=== PATIENT | male | born 1990 | race African-American/Black ===

== ENCOUNTER 2025-03-20 10:09 | Emergency (ER) | payer OTHER, SELFPAY ==
[2025-03-20] VITALS (15 sets, daily range): BP systolic 101–164; BP diastolic 76–108; PULSE 121–152; RESP 16–40; TEMP 36.7; O2SAT 95–100; BMI 35.2
--- NOTE | 2025-03-20 10:07 | ECG_ITS ---
APPROVED REPORT Exam: Resting ECG HR:154 bpm ECG Measurements Heart Rate 154 AXES KS 126 P 84 QRSd 90 QRS 91 QT 273 T 74 QTc 360 Conclusion Sinus tachycardia without acute ST or T wave changes concerning for ischemia Electronically signed by : Hannah Delatorre, 03/22/2025 00:55:10
--- NOTE | 2025-03-20 10:07 | XR_ITS ---
PROCEDURE INFORMATION: Exam: XR Chest Exam date and time: 03/20/2025 10:16 AM Age: 34 years old Clinical indication: Other: Hypoxia TECHNIQUE: Imaging protocol: Radiologic exam of the chest. Views: 1 view. Total images: 7 COMPARISON: No relevant prior studies available. FINDINGS: Lungs: Mild atelectatic changes both lung bases. No focal pneumonia. Pleural spaces: No pleural effusion. No pneumothorax. Heart/Mediastinum: No cardiomegaly. Bones/joints: Unremarkable. IMPRESSION: 1. Mild atelectatic changes both lung bases. 2. No focal pneumonia.
--- NOTE | 2025-03-20 10:14 | ED_ITS ---
Discharge Plan Disposition Patient Disposition: Left Against Medical Advice Condition: Fair Prescriptions Prescriptions: New prednisone 20 mg tablet 20 mg PO BID 5 Days Qty: 10 0RF azithromycin 500 mg tablet 500 mg PO DAILY 5 Days Qty: 5 0RF budesonide-formoterol [Symbicort] 160-4.5 mcg/actuation HFA aerosol inhaler 2 inh inhalation BID Qty: 10.2 0RF Referrals Follow up/Referrals: Provider,Referral, MD [Primary Care Provider, Medical] - See instructions Clinical Impressions Clinical Impression: Asthma with exacerbation Qualifiers: Asthma severity: severe Asthma persistence: unspecified Qualified Code(s): J 45.901 - Unspecified asthma with (acute) exacerbation Print Language Print Language: Malay Discharge ED Provider: Hannah Delatorre General Adult HPI General Chief complaint: Shortness of Breath/Dyspnea Stated complaint: Asthma Attack Time Seen by Provider: 03/20/25 10:14 History of Present Illness HPI narrative: Patient is a 34-year-old male with a past medical history of asthma who takes albuterol and Symbicort at home who presented to the emergency department with acute onset of shortness of breath. Patient states that he woke up acutely this morning and felt short of breath. Patient called EMS. When EMS arrived, patient was 84% on room air patient was placed on a nonrebreather given 2 DuoNebs and route. On arrival, patient was severely dyspneic, patient was only able to get out 1 word sentences. Patient had very poor air movement. Patient was able to state that he did not history of asthma has never had to be admitted or intubated but was seen a couple weeks ago for similar asthma attack and was given steroids and discharged home. Patient denies any fevers cough runny nose congestion or other associated symptoms. Patient denies any recent sick contacts. Patient denies any chest pain but does report shortness of breath. Patient denies any abdominal pain nausea vomiting or diarrhea. Related Data Previous Rx's ?Medication ?Instructions ?Recorded azithromycin 500 mg tablet 500 mg PO DAILY 5 days #5 t abs 03/20/25 budesonide-formoterol HFA 160 2 inh inhalation BID #10 .2 grams 03/20/25 mcg-4.5 mcg/actuation aerosol inhaler (Symbicort) prednisone 20 mg tablet 20 mg PO BID 5 days #10 tabs 03/20/25 Allergies Allergy/AdvReac Type Severity Reaction Status Date / Time No Known Drug Allergies Allergy Other Verified 03/20/25 10:30 [facility] Disclaimer: The information contained in this section may have been updated after the patient was seen, as this information can be updated by other users. Social History Smoking Status: Never smoker alcohol intake: never current occupational status: other Travel in the last 8 weeks?: None ROS Obtained: Yes All systems reviewed & no additional complaints except as documented and Yes Systems reviewed as appropriate & no additional complaints except as documented Physical Exam General General appearance: alert and in distress Comment: Appears to be acutely short of breath and in acute distress Head Head exam: atraumatic, normocephalic and normal inspection Eye Eye exam: Present normal appearance, PERRL and EOMI; Absent scleral icterus ENT ENT exam: Present normal exam and normal external ear exam Neck Neck exam: Present normal inspection and full ROM Chest Chest inspection: Present normal inspection and symmetric chest wall rise Respiratory Respiratory exam: Present normal lung sounds bilaterally, respiratory distress, wheezes (Almost silent chest very mild wheezing able to be heard, significantly tachypneic) and accessory muscle use Cardiovascular Cardiovascular exam: Present regular rate, tachycardia and normal heart sounds Abdominal Exam Abdominal exam: Present soft and distention; Absent tenderness, guarding or rebound Extremities Exam Extremities exam: Present normal inspection and full ROM Back Exam Back exam: Present normal inspection and full ROM Neurological Exam Neurological exam: Present alert and oriented X3 Psychiatric Psychiatric exam: Present normal affect and normal mood Skin Skin exam: Present warm and dry Medical Decision Making Medical Records Medical records reviewed: Yes I reviewed the patient's medical records. Screening: Per USPSTF and CDC recommendations, given the prevalence of disease in our region, it is our hospital?s policy to screen for HIV and viral Hepatitis for all patients aged 18 and over and those with ongoing risk factors. Reynold Inquiry Pt receiving controlled substance: No Vital Signs: 03/20/25 10:04 03/20/25 10:30 03/20/25 10:33 Temperature 98.1 F Temperature Source Oral Pulse Rate 152 H Pulse Rate [Apical] 151 H Respiratory Rate 40 H Blood Pressure 101/76 L Blood Pressure [Right Arm] 164/108 H Blood Pressure Mean [Right Arm] 126 Blood Pressure Source [Right Arm] Automatic Cuff Blood Pressure Position [Right Arm] Sitting 02 Sat by Pulse Oximetry 100 95 Oxygen Delivery Method Non-Rebreather BiPAP Oxygen Flow Rate (LPM) 30 Fraction of Inspired Oxygen 30 03/20/25 10:35 03/20/25 11:30 03/20/25 11:45 Temperature Temperature Source Pulse Rate 141 H 131 H 129 H Pulse Rate [Apical] Respiratory Rate Blood Pressure Blood Pressure [Right Arm] Blood Pressure Mean [Right Arm] Blood Pressure Source [Right Arm] Blood Pressure Position [Right Arm] 02 Sat by Pulse Oximetry 98 Oxygen Delivery Method BiPAP Oxygen Flow Rate (LPM) Fraction of Inspired Oxygen 03/20/25 12:00 03/20/25 12:15 03/20/25 13:07 Temperature Temperature Source Pulse Rate 131 H 130 H 132 H Pulse Rate [Apical] Respiratory Rate Blood Pressure 141/86 H Blood Pressure [Right Arm] Blood Pressure Mean [Right Arm] Blood Pressure Source [Right Arm] Blood Pressure Position [Right Arm] 02 Sat by Pulse Oximetry 98 97 98 Oxygen Delivery Method BiPAP Oxygen Flow Rate (LPM) 30 Fraction of Inspired Oxygen 03/20/25 13:10 03/20/25 13:30 03/20/25 14:00 Temperature Temperature Source Pulse Rate 121 H 126 H Pulse Rate [Apical] Respiratory Rate Blood Pressure 129/84 123/81 Blood Pressure [Right Arm] Blood Pressure Mean [Right Arm] Blood Pressure Source [Right Arm] Blood Pressure Position [Right Arm] 02 Sat by Pulse Oximetry 98 97 Oxygen Delivery Method BiPAP BiPAP Oxygen Flow Rate (LPM) 30 30 Fraction of Inspired Oxygen 30 03/20/25 14:15 03/20/25 14:31 Temperature Temperature Source Pulse Rate 125 H Pulse Rate [Apical] Respiratory Rate Blood Pressure 127/98 H Blood Pressure [Right Arm] Blood Pressure Mean [Right Arm] Blood Pressure Source [Right Arm] Blood Pressure Position [Right Arm] 02 Sat by Pulse Oximetry 100 99 Oxygen Delivery Method Non-Rebreather BiPAP Oxygen Flow Rate (LPM) 15 30 Fraction of Inspired Oxygen Lab Data Lab results reviewed: Yes I reviewed the patient's lab results. Lab Results 03/20/25 10:07: VBG pH 7.30 L, VBG pCO2 51.0, VBG pO2 155.5 H, VBG HCO3 24.5, VBG Total CO2 26.1, VBG Base Excess -1.9, VBG Lactic Acid 2.0 03/20/25 10:14: WBC 19.6 H, RBC 6.03, Hgb 17.4, Hct 52.7 H, MCV 87.4, MCH 28.9, MCHC 33.0, RDW 16.1, Plt Count 347, MPV 10.0, Neut % (Auto) 66.4, Lymph % (Auto) 18.4, Desha % (Auto) 9.4 H, Eos % (Auto) 4.7, Baso % (Auto) 0.5, Neut # (Auto) 13.0 H, Lymph # (Auto) 3.6, Desha # (Auto) 1.8 H, Eos # (Auto) 0.9 H, Baso # (Auto) 0.1, Total Counted 100, Neutrophils % (Manual) 66, Lymphocytes % (Manual) 21, Monocytes % (Manual) 10 H, Eosinophils % (Manual) 3, Platelet Estimate Normal, RBC Morphology Normal, D-Dimer 0.60 H, Sodium 142, Potassium 4.0, Chloride 104, Carbon Dioxide 26, Anion Gap 16.0 H, BUN 8 L, Creatinine 1.00, Estimated GFR 86, Est GFR ( Amer) 104, Glucose 205 H, Calcium 9.6, Magnesium 2.2, Total Bilirubin 0.7, AST 51, ALT 87 H, Alkaline Phosphatase 102, Troponin I < 0.01, Total Protein 7.8, Albumin 4.7, Globulin 3.1, Albumin/Globulin Ratio 1.5 03/20/25 10:27: Chlamy pneumoniae PCR Not detected, Adenovirus (PCR) Not detected, B. pertussis DNA (PCR) Not detected, Coronavirus OC43 (PCR) Not detected, Coronavirus HKU1 (PCR) Not detected, Coronavirus 229E (PCR) Not detected, SARS-CoV-2 (PCR) Not detected, Coronavirus NL63 (PCR) Not detected, Human Metapneumovir PCR Not detected, Influenza A (H1) PCR Not detected, Influ A (H1N1/09) PCR Not detected, Influenza A (H3) PCR Not detected, Influenza Type A (PCR) Not detected, Influenza Type B (PCR) Not detected, M. pneumoniae (PCR) Not detected, Parainfluenza 1 (PCR) Not detected, Parainfluenza 2 (PCR) Not detected, Parainfluenza 3 (PCR) Not detected, Parainfluenza 4 (PCR) Not detected, RSV (PCR) Not detected, Entero/Rhino (PCR) Not detected 03/20/25 12:58: Specimen Source Left radial, O2 % Bipap 12/6 30%, ABG pH 7.32 L , ABG pCO2 48.7 H, ABG pO2 94.0, ABG HCO3 24.2, ABG Total CO2 25.7, ABG O2 Saturation 97, ABG Base Excess -1.9, Maurice Test Acceptable, Vent Rate 16 03/20/25 13:14: Troponin I < 0.01 03/20/25 14:04: VBG pH 7.25 L, VBG pCO2 60.6 H, VBG pO2 36.8, VBG HCO3 26.0, VBG Total CO2 27.9 H, VBG O2 Saturation 63.1, VBG Base Excess -1.2, VBG Lactic Acid 5.5 H 03/20/25 14:26: Troponin I < 0.01 03/20/25 10:14 03/20/25 10:14 Orders (Tests/Meds): ED MEDICATIONS Discontinued Medications Generic Name Dose Route Start Last Admin Trade Name Freq PRN Reason Stop Dose Admin Albuterol Sulfate 20 mg 03/20/25 10:07 03/20/25 10:42 Albuterol 0.083% 2.5 Mg/3 Ml [facility] 03/20/25 10:08 20 mg ONCE ONE Administration Albuterol Sulfate 20 mg 03/20/25 11:52 03/20/25 12:21 Albuterol 0.083% 2.5 Mg/3 Ml [facility] 03/20/25 11:53 20 mg ONCE ONE Administration Albuterol Sulfate 2 puff 03/20/25 15:10 03/20/25 15:22 Albuterol-Hfa 90mcg/Puff Inhaler 8gm 03/20/25 15:11 2 puff ONCE ONE Administration Epinephrine HCl 0.5 mg 03/20/25 14:00 03/20/25 14:29 Epinephrine 1 Mg/Ml Ampul SUBCUT 03/20/25 14:01 Not Given ONCE ONE Magnesium Sulfate 2 gm in 50 mls @ 50 mls/hr 03/20/25 10:07 03/20/25 11:35 Magnesium Sulfate 2gm/50ml Premix IV 03/20/25 11:06 Infused ONCE ONE Infusion Azithromycin 500 mg/ Sodium 250 mls @ 250 mls/hr 03/20/25 10:07 03/20/25 12:46 Chloride IV 03/20/25 10:08 Infused Q24H ONE Infusion Sodium Chloride 1,000 mls @ 999 mls/hr 03/20/25 10:19 03/20/25 11:54 Sod Chlor 0.9% 1000ml Bag IV 03/20/25 11:19 Infused .Q1H1M ONE Infusion Iopamidol 70 ml 03/20/25 14:16 03/20/25 14:17 Iopamidol-370 (76%);100ml Bottle IV 03/20/25 14:17 70 ml ONCE ONE Administration Methylprednisolone Sodium Succinate 125 mg 03/20/25 10:07 03/20/25 10:31 Methylprednisolone Sod Succ 125mg Vial IV 03/20/25 10:08 125 mg ONCE ONE Administration Miscellaneous 1 unit 03/20/25 15:09 03/20/25 15:22 Aerochamber/Optihaler MC 03/20/25 15:10 1 unit ONCE ONE Administration Sodium Chloride 50 ml 03/20/25 14:16 03/20/25 14:17 0.9 % Sodium Chloride 50 Ml Vial IV 03/20/25 14:17 50 ml ONCE ONE Administration Sodium Chloride 10 ml 03/20/25 14:16 03/20/25 14:17 Sodium Chloride 0.9% 10ml Syr (Rad Only) IV 03/20/25 14:17 10 ml ONCE ONE Administration ORDERS Category Date Time Status CT angio chest PE protocol Stat Cat Scan 03/20/25 13:15 Taken CXR --portable [XR chest portable] Stat Exams 03/20/25 10:07 Completed CBC w/Auto Diff [Complete Blood Count Auto Diff] Stat Lab 03/20/25 10:14 Completed CMP [Comprehensive Metabolic Panel] Stat Lab 03/20/25 10:14 Completed D-Dimer Stat Lab 03/20/25 10:14 Completed Full Resp Panel w/COVID ([facility]) Routine Lab 03/20/25 10:27 Completed HIV Combo Stat Lab 03/20/25 13:12 Ordered Hepatitis C Ab Qual. W/ RFX Stat Lab 03/20/25 13:12 Ordered MAG [Magnesium] Stat Lab 03/20/25 10:14 Completed Trop I [Troponin I] Stat Lab 03/20/25 10:14 Completed Troponin I Q3H Lab 03/20/25 13:14 Completed Troponin I Q3H Lab 03/20/25 14:26 Completed Blood Culture Stat Micro 03/20/25 11:15 Received ABG PH Stat RT 03/20/25 12:58 Ordered Arterial Blood Gas Routine RT 03/20/25 12:58 Results VBG [Venous Blood Gas] Stat RT 03/20/25 10:07 Results VBG [Venous Blood Gas] Stat RT 03/20/25 14:04 Completed Medical Decision Narrative: Patient is a 34-year-old male with a past medical history of asthma who presented to the emergency department with acute onset shortness of breath. On arrival, patient was tachycardic but hemodynamically stable. Afebrile but severely tachypneic and dyspneic. Patient was hypoxic in the field, requiring a nonrebreather. Differential includes but not limited to: Asthma exacerbation, ACS/PR, pleural effusion, pneumonia, pulmonary embolism, amongst others. Given patient's significant tachypnea and dyspnea I felt the patient warranted BiPAP. Respiratory therapy was called. Patient was placed on continuous albuterol on arrival. IV was placed and patient was given IV fluids, IV magnesium, IV steroids as well as azithromycin. On repeat evaluation after continuous albuterol, patient had mild improvement in oxygenation and air movement. At this time, a second hour of continuous albuterol was ordered. Patient continued to be on BiPAP. I discussed with the patient that I felt that he needed admission likely to the ICU for his asthma exacerbation. Patient stated that under no circumstances he would want to be admitted to the hospital. Patient states that he would leave AMA even knowing that he could go home and this could cause his heart to stop. Patient was able to tell me his name was GCS of 15 and I felt like patient was able to appropriately make his own medical decisions. On repeat assessment after second continuous albuterol, patient did have improvement in air movement however patient continued to be significantly tight. I again had a discussion with the patient about admission including with his cousin and girlfriend at bedside patient still did not wish to be admitted. I discussed additional medications to help with his acute asthma exacerbation such as epinephrine. Patient was willing to stay in the emergency department for further monitoring therefore IM epinephrine was ordered. CT scan of the chest was obtained to further evaluate and rule out pulmonary embolism. Patient's labs were reviewed and interpreted by myself: CBC showed mild leukocytosis of 19, hemoglobin was stable. D-dimer mildly elevated at 0.60. Initial VBG showed a pH of 7.30 no significant hypercapnia. Patient's repeat ABG had improvement with a pH of 7.32 pCO2 of 48. Patient's CMP was unremarkable. Initial troponin less than 0.01, second troponin less than 0.01. Respiratory panel was negative. EKG was reviewed and interpreted by myself and showed sinus tachycardia without acute ST or T wave changes concerning for ischemia. Chest x-ray was reviewed and interpreted by myself and showed no acute focal saltation, pneumothorax, pleural effusion or other acute cardiopulmonary process. CT scan was performed which was reviewed and interpreted by myself and showed no large pulmonary embolism no other acute pulmonary process. Returned from CT scan, repeat VBG was obtained after patient had been off of BiPAP for only 15 or 20 minutes. Patient's VBG was worsening with pH of 7.25, increased CO2 of 60. At this time, I had discussion with the patient about doing IM epinephrine and placing patient back on BiPAP. Patient stated that he wanted to leave the emergency department and did not want to wait. I had a lengthy discussion with the patient about my concerns with him leaving with the visit case risks including . Patient understood and patient still wanted discharge home. Patient was sent with steroids, MDI albuterol inhaler, inhaled corticosteroid and strict return precautions. Patient ultimately signed out AMA after lengthy discussion on multiple recurrences. Critical Care Critical Care Time Critical Care Time: Yes Attestation: On 03/20/25, the high probability of a clinically significant, sudden or life threatening deterioration of the following system(s) required my full and direct attention, intervention and personal management. The time I documented below is in addition to time spent performing reported procedures but includes the following listed in this critical care notation. Total Time Total Critical Care Time: 90
[2025-03-20 10:25] LABS: Hematocrit 52.7 % (42.0-52.0); Hemoglobin 17.4 g/dL (14.1-18.0); Immature Granulocytes % 0.6 %; Mean Corpuscular HGB Conc 33.0 g/dL (31.8-35.4); Mean Corpuscular Hemoglobin 28.9 pg (27.0-31.2); Mean Corpuscular Volume 87.4 fl (80-94); Nucleated Red Blood Cells % 0 %; Platelet Count 347 K/mm3 (142-424); Red Blood Count 6.03 M/mm3 (4.60-6.20); Red Cell Distribution Width-SD 49.3 fL; White Blood Count 19.6 K/mm3 (4.8-10.8)
[2025-03-20 10:31] LABS: Lactate Venous 2.0 mmol/L (0.4-2.0); VBG HCO3 24.5 mmol/L (23-30); VBG PCO2 51.0 mmol/L (35-51); VBG PH 7.30 mmol/L (7.31-7.41); VBG PO2 155.5 mmol/L (28-40)
[2025-03-20] MEDS: METHYLPREDNISOLONE SOD SUCC 125MG VIAL 125 MG IV (10:31)
[2025-03-20] MEDS: MAGNESIUM SULFATE IN WATER 2 GM/50 ML PIGGYBACK IV (10:31)
[2025-03-20] MEDS: 0.9 % SODIUM CHLORIDE 1000ML 1,000 ML 999 ML IV (10:31)
[2025-03-20 10:34] LABS: Alanine Aminotransferase 87 U/L (12-78); Albumin Level 4.7 g/dl (3.5-5.0); Albumin/Globulin Ratio 1.5 (1.1-1.8); Alkaline Phosphatase 102 U/L (38-126); Anion Gap 16.0 mEq/L (5-15); Aspartate Amino Transferase 51 U/L (17-59); Bilirubin,Total 0.7 mg/dl (0.2-1.3); Blood Urea Nitrogen 8 mg/dl (9-20); Calcium 9.6 mg/dl (8.4-10.2); Carbon Dioxide 26 mmol/L (22.0-30.0); Chloride 104 mmol/L (98-107); Creatinine,Serum 1.00 mg/dl (0.66-1.25); Estimated Glomerular Filt Rate 86 ml/min (>60); GFR (African American) 104 ML/MIN (>60); Globulin 3.1 g/dL (1.3-3.2); Glucose 205 mg/dl (74-100); Magnesium 2.2 mg/dl (1.6-2.3); Potassium 4.0 mmoL/L (3.5-5.1); Sodium 142 mmol/L (136-145); Total Protein,Serum 7.8 g/dl (6.3-8.2)
[2025-03-20 10:35] LABS: Adenovirus,PCR Not Detected (NotDetected); Chlamydophila Pneumoniae, PCR Not Detected (NotDetected); Coronavirus 19, PCR Not Detected (NotDetected); Coronovirus HKU1,PCR Not Detected (NotDetected); Influenza A, PCR Not Detected (NotDetected); Influenza AH1, 2009 Not Detected (NotDetected); Influenza AH1, PCR Not Detected (NotDetected); Influenza AH3,PCR Not Detected (NotDetected); Influenza B, PCR Not Detected (NotDetected); Mycoplasma Pneumoniae, PCR Not Detected (NotDetected); Parainfluenza 1, PCR Not Detected (NotDetected); Parainfluenza 2, PCR Not Detected (NotDetected); Parainfluenza 3, PCR Not Detected (NotDetected); Parainfluenza 4, PCR Not Detected (NotDetected)
[2025-03-20 10:40] LABS: D-Dimer 0.60 ug/mL (0.0-0.5)
[2025-03-20] MEDS: ALBUTEROL 0.083% 2.5 MG/3 ML NEB 20 MG IH ×2 (10:42→12:21)
[2025-03-20 10:49] LABS: Troponin I < 0.01 ng/ml (0.00-0.034)
[2025-03-20 11:20] LABS: RBC Morphology Normal; Total Cells Counted 100
[2025-03-20] MEDS: AZITHROMYCIN 500 MG in 0.9 % SODIUM CHLORIDE 250 ML 250 MG IV (11:41)
--- NOTE | 2025-03-20 11:57 | PC.NURSE ---
Notified RT for another hour of cont. neb tx.
--- NOTE | 2025-03-20 12:59 | PC.NURSE ---
RT notifed per UBALDO Andrews
[2025-03-20 13:07] LABS: ABG HCO3 24.2 mmhg (22.0-26.0); ABG PCO2 48.7 mmhg (35.0-45.0); ABG PH 7.32 mmol/L (7.35-7.45); ABG PO2 94.0 mmhg (80-100); ABG TCO2 25.7 mmhg (23-27)
[2025-03-20 13:08] LABS: Source Left Radial
--- NOTE | 2025-03-20 13:15 | CT_ITS ---
PROCEDURE INFORMATION: Exam: CTA Chest With Contrast Exam date and time: 03/20/2025 2:18 PM Age: 34 years old Clinical indication: Tachypnea; Additional info: Tachycarida, eval for pe, asthma TECHNIQUE: Imaging protocol: Computed tomographic angiography of the chest with contrast. Exam focused on the arteries. 3D rendering (Not supervised by radiologist): MIP and/or 3D reconstructed images were created by the technologist. Radiation optimization: All CT scans at this facility use at least one of these dose optimization techniques: automated exposure control; mA and/or kV adjustment per patient size (includes targeted exams where dose is matched to clinical indication); or iterative reconstruction. Contrast material: ISOVUE 370; Contrast volume: 80 ml; Contrast route: INTRAVENOUS (IV); COMPARISON: CR XR CHEST PORTABLE 03/20/2025 10:16 AM FINDINGS: Pulmonary arteries: Contrast in the main pulmonary artery is low at 225 Hounsfield units. Within the limits of evaluation there is no central pulmonary emboli however, peripheral branches are poorly opacified. This includes limited ability to interpret due to motion. Aorta: Unremarkable. No aortic aneurysm. No aortic dissection. Lungs: Unremarkable. No consolidation. No masses. Pleural spaces: Unremarkable. No pneumothorax. No pleural effusion. Heart: Unremarkable. No cardiomegaly. No pericardial effusion. Lymph nodes: Unremarkable. No enlarged lymph nodes. Liver: Very fatty liver. Bones/joints: Unremarkable. No acute fracture. Soft tissues: Unremarkable. IMPRESSION: No acute findings. However, pulmonary embolism study is limited due to technical factors as discussed above.
[2025-03-20 13:45] LABS: Troponin I < 0.01 ng/ml (0.00-0.034)
--- NOTE | 2025-03-20 14:12 | PC.NURSE ---
pt off Bipap and placed on non-rebreather for CT scan.
[2025-03-20] MEDS: SODIUM CHLORIDE 0.9% 10ML SYR (RAD ONLY) 10 ML IV (14:17)
[2025-03-20] MEDS: IOPAMIDOL-370 (76%);100ML BOTTLE 70 ML IV (14:17)
[2025-03-20] MEDS: 0.9 % SODIUM CHLORIDE 50 ML VIAL IV (14:17)
--- NOTE | 2025-03-20 14:25 | PC.NURSE ---
took pt off non-rebreather and placed pt on NC at 2L. Pt vital signs stable at this time. Call light in reach.
--- NOTE | 2025-03-20 14:28 | PC.NURSE ---
VBG collected and sent to lab, respiratory notified.
[2025-03-20 14:49] LABS: VBG HCO3 26.0 mmol/L (23-30); VBG PCO2 60.6 mmol/L (35-51); VBG PH 7.25 mmol/L (7.31-7.41); VBG PO2 36.8 mmol/L (28-40)
[2025-03-20 14:51] LABS: Lactate Venous 5.5 mmol/L (0.4-2.0)
--- NOTE | 2025-03-20 14:55 | PC.NURSE ---
resp called to place pt back on bipap
[2025-03-20 14:58] LABS: Troponin I < 0.01 ng/ml (0.00-0.034)
--- NOTE | 2025-03-20 15:15 | PC.NURSE ---
call made to resp to assist pt with d/c inhaler
--- NOTE | 2025-03-20 15:21 | PC.NURSE ---
pt signing out AMA, attempted to education pt again about risks of leaving with respiratory distress. pt voices understanding and is requesting to leave.
[2025-03-20] MEDS: ALBUTEROL-HFA 90MCG/PUFF INHALER 8GM 2 PUFF IH (15:22)
[2025-03-20] MEDS: AEROCHAMBER/OPTIHALER 1 UNIT MC (15:22)
[2025-03-20 18:50] LABS: Reflex Lactic Add Lactic Reflex
== END 2025-03-20 15:24 | disposition left against medical advice (07) ==
PROVIDERS: Emergency Provider Student in an Organized Health Care Education/Training Program
DX: R09.02 Hypoxemia (principal); J45.51 Severe persistent asthma with (acute) exacerbation; E87.29 Other acidosis; R74.02 Elevation of levels of lactic acid dehydrogenase [LDH]; R00.0 Tachycardia, unspecified; D72.829 Elevated white blood cell count, unspecified
CPT/HCPCS: 0223U; 36600; 71045; 71275; 80053; 82803; 83735; 84484; 85007; 85025; 85378; 87040; 93005; 96365; 96375; 99285; 99291; J0456; J2919; J3475; J7030; J7050; Q9967